=== PATIENT | female | born 1985 | race Caucasian/White ===

== ENCOUNTER 2022-06-08 07:15 | Emergency (ER) | payer OTHER ==
[~2022-06-08] VITALS: Ht 165.1 cm; Wt 122.7 kg
[2022-06-08 07:19] VITALS: TEMP 98.2
[2022-06-08] MEDS ORDERED: LIDOCAINE HCL100 M1 MM (08:25)
[2022-06-08] MEDS ORDERED: PEPCID 20MG TAB20 MG PO (08:25)
[2022-06-08 08:40] VITALS: BP 125/95; PULSE 95
== END 2022-06-08 08:41 | disposition home or self-care (01) ==
LOC: COL.ER 07:15
DX: J02.9 Acute pharyngitis, unspecified (principal); K21.9 Gastro-esophageal reflux disease without esophagitis; Z79.899 Other long term (current) drug therapy